=== PATIENT | male | born 1940 | race Caucasian/White ===

== ENCOUNTER 2024-12-22 11:25 | Emergency (ER) | payer OTHER, SELFPAY ==
[2024-12-22] VITALS (8 sets, daily range): BP systolic 83–140; BP diastolic 50–74; BMI 14.1
[2024-12-22 12:06] LABS: % Basophils 0.6 % (0-2); % Eosinophils 0.4 % (0-6); % Immature Granulocytes 0.2 % (0-0.5); % Lymphocytes 27.3 % (20.5-51.1); % Neutrophils 62.5 % (42.2-75.2); Absolute Lymphocytes 1.3 10^3/uL (1.2-3.4); Absolute Monocytes 0.4 10^3/uL (0.1-0.6); Absolute Neutrophils 3.1 10^3/uL (1.4-6.5); Hemoglobin 11.5 g/dL (13.0-18.0); Mean Corp Hgb Conc. 33.8 g/dL (33.0-37.0); Mean Corpuscular Volume 103.3 fL (80.0-94.0); Mean Platelet Volume 11.2 fL (7.4-10.4); Nucleated Red Blood Cells % 0 % (-); Platelet Count 153 10^3/uL (130-400); Red Blood Cell Count 3.29 10^6/uL (4.70-6.10); Red Cell Dist. Width 13.7 % (11.5-14.5); White Blood Cell Count 4.9 10^3/uL (4.8-10.8)
--- NOTE | 2024-12-22 12:24 | ED.GENMED ---
History of Present Illness
<Yolanda Landa PA-C - Last Filed: 12/23/24 00:30>
General
Chief Complaint: Dehydration Symptoms
Source: patient
Exam Limitations: none
Time Seen by Provider: 12/22/24 11:46
Nursing documentation reviewed up to this point in time: agreed with
History of Present Illness
History of Present Illness:
Patient is an 84-year-old male with history hypertension, hyperlipidemia, CAD, parkinsonism presented to the emergency department with complaints of visual hallucinations for the past 3 weeks. Patient lives at home with his and states he has
been seeing figures that are not there. Patient denies any associated auditory hallucinations. In addition�patient states he has been very weak and unsteady on his feet, having multiple falls. While patient is uncertain�there is suspicion that
there were some degree of head strikes given scattered abrasions on face.
Patient denies any headache, chest pain, shortness of breath, dizziness. No fevers, chills or abdominal pain. Patient denies any dysuria although daughter states his urine has been 'cloudy'.
Patient recently moved to the area from [place].
Past History
<Yolanda Landa PA-C - Last Filed: 12/23/24 00:30>
Past History
ED Past Medical History: HTN and Hypercholesterolemia
ED Past Surgical History: Cardiac
Review of Systems
<Yolanda Landa PA-C - Last Filed: 12/23/24 00:30>
Review of Systems
Allergies reviewed?: Yes
All Other Systems: ROS reviewed and negative except as documented in HPI and ROS
Phy Exam
<Yolanda Landa PA-C - Last Filed: 12/23/24 00:30>
Physical Exam
Physical Exam:
Vitals: Borderline hypotensive (although close to baseline per patient), Afebrile
General: Patient is frail and thin. In no apparent distress
Skin: Warm and dry, no rashes or lesions. Scattered abrasions to face and bilateral upper and lower extremities.
Head: Normocephalic, atraumatic
Eyes: Sclera nonicteric. EOMs intact. Pupils equal round and reactive to light bilaterally. No nystagmus.
Throat: Protecting airway
Neck: Normal ROM, no cervical spine tenderness, no meningismus
Cardiac: Regular rate and rhythm, no murmurs.
Pulm: Normal respiratory effort, no wheezes, rales, rhonchi heard on exam.
Abdomen: Abdomen soft and nontender. No abdominal tenderness.
Extremities: No evidence of cyanosis or edema. Bilateral upper and lower extremities atraumatic and nontender with full range of motion. Specifically no tenderness with internal/external rotation of bilateral hips.
Neuro: AAOx3. Grossly intact. No hallucinations currently.
Psychiatric: Normal affect. Not responding to any internal stimuli on examination.
Course
<Yolanda Landa PA-C - Last Filed: 12/23/24 00:30>
Orders/Labs/Results
Orders:
Orders
12/22/24 11:52
Electrocardiogram (*1) Urgent
Reason for Study: Chest Pain
EKG- Treatment ONCE
12/22/24 11:55
Basic Metabolic Panel Urgent
Complete Blood Count/With Diff Urgent
12/22/24 12:14
CT Head W/o Iv Contrast Urgent
Comment:
Reason For Exam: hallucinations, recent falls
Cervical Spine wo Contrast CT [CT Cervical Spine W/o Iv Contr] Urgent
Comment:
Reason For Exam: unwitnessed fall
EKG- Treatment ONCE
12/22/24 13:56
NEUROLOGY CONSULT Urgent
Consulting Provider: Saadia Robbins
Was physician already notified: Yes
12/22/24 14:14
Urinalysis Reflex To Culture Urgent
Date Specimen was Collected: 12/22/24
Time Specimen was Collected: 14:11
Urine Microscopic Reflex Cult Urgent
Urine Culture Urgent
LELIA Source: U
Specimen Description:
Date Specimen was Collected: 12/22/24
Time Specimen was Collected: 14:11
12/22/24 14:54
CefTRIAXone [Rocephin] 1,000 mg IV NOW STA
12/22/24 15:50
Case Management Consult ONCE
Case Management Consult: Discharge Planning
Abnormal Lab Results
12/22/24 12/22/24
11:55 14:14
RBC 3.29 L 10^6/uL
(4.70-6.10)
Hgb 11.5 L g/dL
(13.0-18.0)
Hct 34.0 L %
(39.0-52.0)
MCV 103.3 H fL
(80.0-94.0)
MCH 35.0 H pg
(27.0-31.0)
MPV 11.2 H fL
(7.4-10.4)
Carbon Dioxide 32 H mmol/L
(22-30)
BUN 25 H mg/dl
(9-20)
Glucose 122 H mg/dl
(70-99)
Ur Occult Blood Reflex 2+ A
(Negative)
Leukocyte Esterase Rfl 3+ A
(Negative)
Urine RBC 3-6 A /HPF
(0-2)
Urine WBC (Reflex) >100 A /HPF
(0-5)
Urine Bacteria (Reflex) Many A
(Negative)
Urine Albumin (Reflex) 2+ A
(Neg - Trace)
12/22/24 11:55
12/22/24 11:55
Vital Signs
Initial and Last Documented VS:
Initial Vital Signs
BP Pulse Ox
96/63 98
12/22/24 11:30 12/22/24 11:30
Last Documented Vital Signs
Temp Pulse Resp BP Pulse Ox
98.0 F 76 12 140/74 99
12/22/24 11:31 12/22/24 15:30 12/22/24 15:30 12/22/24 15:30 12/22/24 15:00
<Kevin Diallo, DO - Last Filed: 12/22/24 15:48>
Orders/Labs/Results
Orders:
Orders
12/22/24 11:52
Electrocardiogram (*1) Urgent
Reason for Study: Chest Pain
EKG- Treatment ONCE
12/22/24 11:55
Basic Metabolic Panel Urgent
Complete Blood Count/With Diff Urgent
12/22/24 12:14
CT Head W/o Iv Contrast Urgent
Comment:
Reason For Exam: hallucinations, recent falls
Cervical Spine wo Contrast CT [CT Cervical Spine W/o Iv Contr] Urgent
Comment:
Reason For Exam: unwitnessed fall
EKG- Treatment ONCE
12/22/24 13:56
NEUROLOGY CONSULT Urgent
Consulting Provider: Saadia Robbins
Was physician already notified: Yes
12/22/24 14:14
Urinalysis Reflex To Culture Urgent
Date Specimen was Collected: 12/22/24
Time Specimen was Collected: 14:11
Urine Microscopic Reflex Cult Urgent
Urine Culture Urgent
LELIA Source: U
Specimen Description:
Date Specimen was Collected: 12/22/24
Time Specimen was Collected: 14:11
12/22/24 14:54
CefTRIAXone [Rocephin] 1,000 mg IV NOW STA
12/22/24 15:50
Case Management Consult ONCE
Case Management Consult: Discharge Planning
Abnormal Lab Results
12/22/24 12/22/24
11:55 14:14
RBC 3.29 L 10^6/uL
(4.70-6.10)
Hgb 11.5 L g/dL
(13.0-18.0)
Hct 34.0 L %
(39.0-52.0)
MCV 103.3 H fL
(80.0-94.0)
MCH 35.0 H pg
(27.0-31.0)
MPV 11.2 H fL
(7.4-10.4)
Carbon Dioxide 32 H mmol/L
(22-30)
BUN 25 H mg/dl
(9-20)
Glucose 122 H mg/dl
(70-99)
Ur Occult Blood Reflex 2+ A
(Negative)
Leukocyte Esterase Rfl 3+ A
(Negative)
Urine RBC 3-6 A /HPF
(0-2)
Urine WBC (Reflex) >100 A /HPF
(0-5)
Urine Bacteria (Reflex) Many A
(Negative)
Urine Albumin (Reflex) 2+ A
(Neg - Trace)
12/22/24 11:55
12/22/24 11:55
Vital Signs
Initial and Last Documented VS:
Initial Vital Signs
BP Pulse Ox
96/63 98
12/22/24 11:30 12/22/24 11:30
Last Documented Vital Signs
Temp Pulse Resp BP Pulse Ox
98.0 F 76 12 140/74 99
12/22/24 11:31 12/22/24 15:30 12/22/24 15:30 12/22/24 15:30 12/22/24 15:00
<Yolanda Landa PA-C - Last Filed: 12/23/24 00:30>
MDM/Problems Addressed
Differential Diagnosis Includes:
Not limited to: Intracranial hemorrhage, head trauma, acute dehydration, electrolyte abnormality, UTI, progression of disease, etc.
MDM/Problems Addressed:
Patient is an 84 year-old male presenting with 3 weeks of visual hallucinations associated with generalized weakness and frequent falls. No infectious symptoms, including fever, abdominal pain or cough. No chest pain or shortness of breath. Patient
borderline hypotensive on arrival although states is near his baseline. Physical exam as above. Patient very frail and weak appearing although in no distress. Cardio/pulmonary assessment unremarkable. Patient is A&O x3 with no focal neurologic
deficits on exam. Patient does have history parkinsonism. Differential broad at this time although considerations include central process, progression of disease, electrolyte imbalance or underlying infectious process. Will check screening labs,
urinalysis, EKG. Given altered mental status and recent falls � will obtain CT head and cervical spine. We�ll give IV fluids.
Update: labs reviewed. No clinically significant abnormalities. CT cervical spine without acute injuries. Received message radiology at 1306- CT head shows a chronic subdural hygroma causing 4 mm midline shift and minimal mass effect. Will discuss
with neurology as uncertain if this chronic finding may be associated with patients symptoms today.
Update: Case was discussed with neurosurgery, Dr. Meyer, who does not feel this would be contributing to patients symptoms today. Recommends neurology consult for further evaluation given history of Parkinson.
Update: Neurology was consulted and down to evaluate patient at bedside who sees no evidence of an acute neurologic process. UA appears infected. While UTI possibly contributing to weakness and altered mental status � feel progression of
disease/dementia is a factor, as well. Blood pressure did improve in ED following IV fluids. However � given hypotension upon arrival along with altered mental status, generalized weakness with frequent falls, and UTI� strong recommendation was made
to patient for admission to hospital for IV anabiotic/further management. Patient adamant that he would like to be discharged home. There was a lengthy discussion with myself, attending physician, patient and family regarding disposition. Patient is
competent to make medical decisions and he understands risks of discharge. Did have case management consult who was able to arrange at home visiting nurse. Patient is also being followed by palliating care doctor this week. At this point - patient
will be discharged home. Close return precautions discussed.
Chronic conditions affecting care:
Parkinsonism, history of subdural hematoma
Acute Exacerbation and/or Progression of Chronic Illness:
Chronic subdural hygroma, Acute UTI
<Yolanda Landa PA-C - Last Filed: 12/23/24 00:30>
*Radiology
Radiology exam reviewed: radiology read reviewed
*Pulse Oximetry
Patient hypoxic: no
*Critical Care Note
Total Time (30-74mins, 75-104mins- exclusive of procedures): Not Applicable
<Yolanda Landa PA-C - Last Filed: 12/23/24 00:30>
Patient Management
Discussion with other providers: Service Advisor (Case was discussed with neurosurgery and neurology)
Escalation/DeEscalation of care consider admission/obs:
Given AMS with visual hallucinations, weakness with frequent falls, and UTI�admission was recommended to patient although he is adamant that he would like to go home; patient will be discharged home on oral antibiotics with at home visiting nurse
and palliative care consult
ED Attending Note
<Yolanda Landa PA-C - Last Filed: 12/23/24 00:30>
-
Portions of this chart may have been created with voice recognition software.� Occasional wrong word or��sound alike� substitutions may have occurred due to the inherent limitations of voice recognition software.
<Kevin Diallo, - Last Filed: 12/22/24 15:48>
ED Attending Note
Patient seen and examined by attending physician: Yes
ED Attending Note:
I reviewed and agree with history and treatment plan by Yolanda Landa. My exam revealed 84-year-old male, thin, no acute distress, but wanting to leave. He has had frequent falls, no significant trauma noted on evaluation. Patient with UTI.
Will treat with Rocephin. Patient offered admission, however he declines. Discharged to follow-up with primary care. Patient is following with Dr. Manning, palliative care.
Discharge Plan
Departure
Patient Disposition: Home (Routine Discharge)
Date of Disposition: 12/22/24
Time of Disposition: 16:35
Patient with high blood pressure during this ER visit?: No
Discharge Problem:
Acute UTI, Hallucinations, visual, Generalized weakness
Instructions: Urinary tract infection - Discharge instructions
Prescriptions:
New
cephalexin 500 mg capsule
500 mg PO BID 7 Days Qty: 14 0RF
No Action
atorvastatin [Lipitor] 40 mg Tablet
40 mg PO QPM
mirtazapine [Remeron] 30 mg Tablet
30 mg PO HS
carbidopa-levodopa [Sinemet] 25-100 mg Tablet
1 tab PO TID@,,17
fluoxetine [Prozac] 20 mg Capsule
20 mg PO DAILY
folic acid 800 mcg Tablet
0.8 mg PO QPM
donepezil [Aricept] 23 mg Tablet
23 mg PO DAILY
cyanocobalamin (vitamin B-12) 1,000 mcg Tablet
2,000 mcg PO DAILY
omega 8-ydt-mat-fish oil [Fish Oil] 1,000 (120-180) mg Capsule
2 cap PO DAILY
ibuprofen [Advil] 200 mg Tablet
200 mg PO DAILYPRN PRN (Reason: mild pain)
Referrals:
Josie Saavedra MD [Family Provider] - Follow up in 5-7 days
Activity Restrictions/Additional Instructions:
Return to the emergency department any high fevers, changes in mental status, chest pain, shortness of breath, recurrent falls, severe abdominal pain, or any other concerns
-As discussed�your urine looked infected in the emergency department. You received a dose of IV antibiotics. A prescription for Keflex has been sent to your pharmacy which you should resume tomorrow and take for the next week twice a day.
-It is important stay well-hydrated.
-Follow-up with neurology and palliative care for further evaluation/management and to ensure symptoms are improving. You should also follow-up with your primary care provider.
-I provided copies of your imaging studies that you should ensure followed up with neurology and primary care, as well.
Monitor your symptoms closely and return to the emergency department with any acute worsening/new symptoms or any other concern
Interventions
Interventions:
*Risk Screen - Suicide Last Done: 12/22/24 11:31
*General Assessment Last Done: 12/22/24 11:31
*Neglect/Abuse Screening Last Done: 12/22/24 11:31
*ED- Fall Risk Assessment Last Done: 12/22/24 11:31
*ED COVID-19 Vaccine History Last Done: 12/22/24 17:16
*Nursing Disposition Last Done: 12/22/24 17:16
ED- Cardiac Assessment Last Done: 12/22/24 11:40
ED- Neurological Assessment Last Done: 12/22/24 11:40
ED- Pulmonary Assessment Last Done: 12/22/24 11:40
Discharge Date and Time
Discharge Date/Time: 12/22/24 17:21
Print Language: AMHARIC
[2024-12-22 12:25] LABS: Blood Urea Nitrogen 25 mg/dl (9-20); Calcium 8.9 mg/dl (8.4-10.2); Carbon Dioxide 32 mmol/L (22-30); Chloride 106 mmol/L (98-107); Estimated Creatinine Clearance 40 ml/min; Glucose 122 mg/dl (70-99); Sodium 142 mmol/L (135-145); eGFR > 60.00
[2024-12-22 14:29] LABS: Urine Albumin 2+ (Neg - Trace); Urine Bilirubin Negative (Negative); Urine Character Clear (Clear); Urine Color Yellow; Urine Glucose Negative (Negative); Urine Ketone Negative (Negative); Urine Leukocyte 3+ (Negative); Urine Nitrite Negative (Negative); Urine Occult Blood 2+ (Negative); Urine Urobilinogen Negative (Neg - 1+); Urine pH 6.5 (5.0-9.0)
[2024-12-22 14:43] LABS: Urine Bacteria Many (Negative); Urine White Cell >100 /HPF (0-5)
--- NOTE | 2024-12-22 14:50 | CON.NEURO ---
Consultation
Order
Date of Consultation: 12/22/24
Requesting Provider: Yolanda Landa PA-C
Reason for Consult: Generalized weakness and visual hallucinations
Neurology Consultation Note.
HPI: This is an 84-year-old man who presented to [facility] on 12/22/2024 with failure to thrive visual hallucinations and worsening of ambulatory dysfunction.
Mr. Slater reports no complaints. He is eager to go home. Mitts to 3 days of intermittent visual not disturbing hallucinations in the evening. No reports of head trauma, new visual, motor or sensory deficits, according to patient's daughter her
parents have recently relocated from [place]. Her father has noted to have progressive weight loss as well as worsening of ambulatory dysfunction prompting her to seek medical care.
ER VS: 96/63-83/67, 67 afebrile
EKG: Pending
PDMP: none
Labs: Glucose�122, hemoglobin�11.5, MCV�103.3, UA�positive for leukocyte esterase, RBCs, bacteria, WBCs.
CT head wo contrast-L subdural hygroma with 4 mm midline shift and minimal mass effect.
PMH: L Traumatic SDH, parkinsonism, MCI, CAD, DLP, hypothyroidism, BMI 14, YOAV
PSH: CABG, bilateral cataract surgery bilateral AAMIR
SH: , retired from sales, non-smoker, no history excessive alcohol use
FH: Mother at the age of 104, father, at 84 from melanoma
All:NKDA
ROS: Positive for weight loss
HENT: Negative for ear pain, hearing loss, tinnitus and trouble swallowing.
Eyes: Negative. Negative for photophobia, pain and visual disturbance.
Respiratory: Negative for cough, choking and shortness of breath.
Cardiovascular: Negative for chest pain, palpitations and leg swelling.
Gastrointestinal: Positive for poor appetite
Endocrine: Negative. Negative for cold intolerance.
Genitourinary: Negative for dysuria, flank pain and urgency.
Musculoskeletal: Negative for back pain, gait problem, neck pain and neck stiffness.
Skin: Negative for rash.
Allergic/Immunologic: Negative. Negative for immunocompromised state.
Neurological: Positive for intermittent confusion, imbalance, frequent falls, tremor
Psychiatric/Behavioral: Positive for infrequent visual hallucinations
General: Well developed. In no acute distress.
Cardio: Regular rate and rhythm without murmur. Extremities are without cyanosis or edema.
Neuro:
Mental Status: Alert, oriented to person, place, and date. Mildly impaired attention. Follows complex requests. Good fund of knowledge. Follows complex requests across the midline. Comprehension, naming, and repetition intact.
Cranial Nerves: Pupils are equally round, surgeon. EOMs full except for minimally limited upgaze.. Visual black full to confrontation. No ptosis. No nystagmus. Face symmetric. Impaired hearing AU. The palate elevated well. SCMs and traps
5/5. Tongue midline. No dysarthria.
Motor: Increased motor tone in upper and lower extremities. No pronator or leg drift.
Reflexes: Bilateral grasp
Coordination: Bilateral action hand tremor. No dysmetria.
Gait: deferred
Assessment and Plan:
I. Parkinsonism. LBD?
II. Autonomic dysfunction
III. Chronic L traumatic hygroma with midline shift
IV. Worsening of chronic encephalopathy (neurodegenerative, infectious).
-For precautions
-Avoid straining, coughing, and walking in hot weather; these activities reduce venous return and worsen orthostatic hypotension
-Maintain hydration and avoiding over-heating
-Raise the head of the bed 10 to 20 degrees to decrease renal perfusion, to activating the yidrj-bxbopxlfpad-iegpenbotaq system and decrease nocturnal diuresis
-Use of custom-fitted elastic stockings permits the application of graded pressure to the lower extremities and lower abdomen, to minimize peripheral blood pooling. It is essential that such stockings extend to the waist since most peripheral
pooling occurs in the splanchnic circulation.
-Drink water with meals
-Consider starting midodrine
-Zyprexa 0.25 mg as needed if no contraindications
Continue home dose of Sinemet
Avoid medications that have dopamine blocking properties
-PT OT
-barrow worker helper consult
I personally reviewed all radiology and labs along with past medical records pertinent to current medical problems. Total time spent in patient care is 60 minutes.
Thank you for allowing us to participate in the care of this patient. We will continue to follow. Please do not hesitate to contact us with any questions or concerns.
Subjective/Objective
Subjective Data
Date of Service: December 22, 2024
Objective Data
Vital Signs
Temp Pulse Resp BP Pulse Ox
36.7 C 67 16 103/50 98
12/22/24 11:31 12/22/24 14:26 12/22/24 14:26 12/22/24 14:26 12/22/24 14:26
Lab Results
12/22/24 11:55
12/22/24 11:55
Sodium 142 mmol/L (135-145) 12/22/24 11:55
Potassium Not Reportable 12/22/24 11:55
BUN 25 mg/dl (9-20) H 12/22/24 11:55
Glucose 122 mg/dl (70-99) H 12/22/24 11:55
Calcium 8.9 mg/dl (8.4-10.2) 12/22/24 11:55
Patient Allergies
No Known Allergies Allergy (Verified 12/22/24 11:30)
Medications
-
Home Medications
�Medication �Instructions �Recorded
atorvastatin 40 mg tablet (Lipitor) 40 mg PO DAILY 12/22/24
carbidopa 25 mg-levodopa 100 mg 1 tab PO TID 12/22/24
tablet (Sinemet)
donepezil 23 mg tablet (Aricept) 23 mg PO DAILY 12/22/24
fluoxetine 20 mg capsule (Prozac) 20 mg PO DAILY 12/22/24
folic acid 800 mcg tablet 0.8 mg PO DAILY 12/22/24
mecobalamin (vitamin B12) 1,000 2,000 mcg PO DAILY 12/22/24
mcg chewable tablet (B12 Active)
mirtazapine 30 mg tablet (Remeron) 30 mg PO DAILY 12/22/24
omega-3 fatty acids-vitamin E 2 cap PO DAILY 12/22/24
1,000 mg capsule
Vital Signs and Labs
-
Vital Signs and Labs:
Vital Signs
Temp Pulse Resp BP Pulse Ox
36.7 C 67 16 103/50 98
12/22/24 11:31 12/22/24 14:26 12/22/24 14:26 12/22/24 14:26 12/22/24 14:26
Lab Results
12/22/24 11:55
12/22/24 11:55
Sodium 142 mmol/L (135-145) 12/22/24 11:55
Potassium Not Reportable 12/22/24 11:55
BUN 25 mg/dl (9-20) H 12/22/24 11:55
Glucose 122 mg/dl (70-99) H 12/22/24 11:55
Calcium 8.9 mg/dl (8.4-10.2) 12/22/24 11:55
Home Medications
-
Home Medications
atorvastatin 40 mg tablet (Lipitor) 40 mg PO DAILY 12/22/24
carbidopa 25 mg-levodopa 100 mg tablet (Sinemet) 1 tab PO TID 12/22/24
donepezil 23 mg tablet (Aricept) 23 mg PO DAILY 12/22/24
fluoxetine 20 mg capsule (Prozac) 20 mg PO DAILY 12/22/24
folic acid 800 mcg tablet 0.8 mg PO DAILY 12/22/24
mecobalamin (vitamin B12) 1,000 mcg chewable tablet (B12 Active) 2,000 mcg PO DAILY 12/22/24
mirtazapine 30 mg tablet (Remeron) 30 mg PO DAILY 12/22/24
omega-3 fatty acids-vitamin E 1,000 mg capsule 2 cap PO DAILY 12/22/24
[2024-12-22] MEDS: ROCEPHIN 1000 MG IV (15:50)
--- NOTE | 2024-12-22 16:30 | CM ---
CM reviewed medical. CM met with patient, daughter and in room. Patient is resistant to admission and is requesting discharge to home. and daughter report multiple falls in the home. is agreeable to home discharge, but feels that he
will be unsafe.
CM will place referral to [facility]. Daughter reports that Palliative Care is on board and will have a in home visit this Friday.
PLAN: [facility], Palliative Care.
== END 2024-12-22 17:21 | disposition home or self-care (01) ==
LOC: EMR 11:25
PROVIDERS: Physician Assistant; CONSULT PHYSICIAN Psychiatry & Neurology Neurology; EMERGENCY PHYSICIAN Emergency Medicine; FAMILY PHYSICIAN Internal Medicine; REFERRING PHYSICIAN Psychiatry & Neurology Neurology
DX: N39.0 Urinary tract infection, site not specified (principal); R44.1 Visual hallucinations; R53.1 Weakness; I10 Essential (primary) hypertension; E78.00 Pure hypercholesterolemia, unspecified; I25.10 Atherosclerotic heart disease of native coronary artery without angina pectoris; G20.C Parkinsonism, unspecified; R29.6 Repeated falls
CPT/HCPCS: 99285; 96374; 70450; 72125; 80048; 81003; 81015; 85025; 87077; 87086; 93005